=== PATIENT | female | born 1955 | race American Indian/Alaskan Native ===

== ENCOUNTER 2018-07-18 13:36 | Emergency (ER) | payer MEDICARE ==
[2018-07-18 13:51] VITALS: BP 118/79
--- NOTE | 2018-07-18 14:38 | Emergency Department Report ---
ED ENT HPI - General Chief complaint: Earache Stated complaint: EARS CLOSED UP Time Seen by Provider: 07/18/18 14:28 Source: patient Mode of arrival: Wheelchair Limitations: No Limitations - History of Present Illness Initial comments: Patient is 63-year-old female who states she was at congregation and felt as though she couldn't hear. Patient's had issues with cerumen impactions in the past. Patient states is getting worse over the last several weeks. Patient denies any fevers chills nausea vomiting at this time. - Related Data Home Medications Medication Instructions Recorded Confirmed Last Taken Aspirin [Aspirin BABY CHEW TAB] 81 mg PO QDAY 10/29/15 10/29/15 Unknown Cholecalciferol (Vitamin D3) 2,000 unit PO QDAY 10/29/15 10/29/15 Unknown [Vitamin D3] Lisinopril [Zestril] 20 mg PO QDAY 10/29/15 10/29/15 Unknown Metoprolol Xl [Metoprolol 100 mg PO QDAY 10/29/15 10/29/15 Unknown SUCCINATE ER TAB] Ranitidine HCl [Zantac 150 MG TAB] 150 mg PO BID 10/29/15 10/29/15 Unknown amLODIPine [Norvasc] 5 mg PO DAILY 10/29/15 10/29/15 Unknown Previous Rx's Medication Instructions Recorded Last Taken Type HYDROcodone/APAP 5-325 [[place] 1 each PO Q6HR PRN #10 tablet 10/29/15 Unknown Rx 5/325] Carbamide Peroxide [Earwax 10 drops AU BID #1 01/01/16 Unknown Rx Treatment] Carbamide Peroxide 6.5% [Ear Wax 2 drops OT BID #1 bottle 07/18/18 Unknown Rx Drops] Allergies Allergy/AdvReac Type Severity Reaction Status Date / Time No Known Allergies Allergy Verified 10/29/15 13:59 ED Dental HPI - General Chief complaint: Earache Stated complaint: EARS CLOSED UP Time Seen by Provider: 07/18/18 14:28 Source: patient Mode of arrival: Wheelchair Limitations: No Limitations - Related Data Home Medications Medication Instructions Recorded Confirmed Last Taken Aspirin [Aspirin BABY CHEW TAB] 81 mg PO QDAY 10/29/15 10/29/15 Unknown Cholecalciferol (Vitamin D3) 2,000 unit PO QDAY 10/29/15 10/29/15 Unknown [Vitamin D3] Lisinopril [Zestril] 20 mg PO QDAY 10/29/15 10/29/15 Unknown Metoprolol Xl [Metoprolol 100 mg PO QDAY 10/29/15 10/29/15 Unknown SUCCINATE ER TAB] Ranitidine HCl [Zantac 150 MG TAB] 150 mg PO BID 10/29/15 10/29/15 Unknown amLODIPine [Norvasc] 5 mg PO DAILY 10/29/15 10/29/15 Unknown Previous Rx's Medication Instructions Recorded Last Taken Type HYDROcodone/APAP 5-325 [[place] 1 each PO Q6HR PRN #10 tablet 10/29/15 Unknown Rx 5/325] Carbamide Peroxide [Earwax 10 drops AU BID #1 01/01/16 Unknown Rx Treatment] Carbamide Peroxide 6.5% [Ear Wax 2 drops OT BID #1 bottle 07/18/18 Unknown Rx Drops] Allergies Allergy/AdvReac Type Severity Reaction Status Date / Time No Known Allergies Allergy Verified 10/29/15 13:59 ED Review of Systems ROS: Stated complaint: EARS CLOSED UP Other details as noted in HPI Comment: All other systems reviewed and negative ED Past Medical Hx - Past Medical History Hx Hypertension: Yes Hx CVA: Yes (2008) Hx GERD: Yes Hx Arthritis: Yes - Surgical History Past Surgical History?: Yes Additional Surgical History: laser surgery on bleeding vein in stomach - Social History Smoking Status: Never Smoker Substance Use Type: None - Medications Home Medications: Home Medications Medication Instructions Recorded Confirmed Last Taken Type Aspirin [Aspirin BABY CHEW TAB] 81 mg PO QDAY 10/29/15 10/29/15 Unknown History Cholecalciferol (Vitamin D3) 2,000 unit PO QDAY 10/29/15 10/29/15 Unknown History [Vitamin D3] HYDROcodone/APAP 5-325 [[place] 1 each PO Q6HR PRN #10 tablet 10/29/15 Unknown Rx 5/325] Lisinopril [Zestril] 20 mg PO QDAY 10/29/15 10/29/15 Unknown History Metoprolol Xl [Metoprolol 100 mg PO QDAY 10/29/15 10/29/15 Unknown History SUCCINATE ER TAB] Ranitidine HCl [Zantac 150 MG TAB] 150 mg PO BID 10/29/15 10/29/15 Unknown History amLODIPine [Norvasc] 5 mg PO DAILY 10/29/15 10/29/15 Unknown History Carbamide Peroxide [Earwax 10 drops AU BID #1 01/01/16 Unknown Rx Treatment] Carbamide Peroxide 6.5% [Ear Wax 2 drops OT BID #1 bottle 07/18/18 Unknown Rx Drops] ED Physical Exam - General Limitations: No Limitations General appearance: alert, in no apparent distress - Head Head exam: Present: atraumatic, normocephalic - Eye Eye exam: Present: normal appearance - ENT ENT exam: Present: other (bilateral cerumen impaction) - Neck Neck exam: Present: normal inspection ED Course Vital Signs 07/18/18 13:49 Temperature 98.4 F Pulse Rate 57 L Respiratory 16 Rate Blood Pressure 118/79 O2 Sat by Pulse 98 Oximetry ED Medical Decision Making - Medical Decision Making Patient given a prescription for Cerumenex be discharged home. Critical care attestation.: If time is entered above; I have spent that time in minutes in the direct care of this critically ill patient, excluding procedure time. ED Disposition Clinical Impression: Excessive cerumen in both ear canals Disposition: [id number] TO HOME OR SELFCARE Is pt being admited?: No Does the pt Need Aspirin: No Condition: Stable Prescriptions: Carbamide Peroxide 6.5% [Ear Wax Drops] 2 drops OT BID #1 bottle Time of Disposition: 14:37
== END 2018-07-18 15:00 | disposition home or self-care (01) ==
LOC: ED 13:36
DX: H61.23 Impacted cerumen, bilateral (principal); I10 Essential (primary) hypertension; K21.9 Gastro-esophageal reflux disease without esophagitis; M19.90 Unspecified osteoarthritis, unspecified site; Z86.73 Personal history of transient ischemic attack (TIA), and cerebral infarction without residual deficits; Z79.82 Long term (current) use of aspirin
CPT/HCPCS: 99281

== ENCOUNTER 2020-06-27 10:48 | Outpatient (CLI) | payer MEDICARE ==
--- NOTE | 2020-06-27 14:54 | Magnetic Resonance Report ---
MRI LEFT SHOULDER WITHOUT CONTRAST INDICATION / CLINICAL INFORMATION: M25.512 PAIN IN LEFT SHOULDER/M75.102Unspecified rotator cuff tea. TECHNIQUE: Multiplanar, multisequence MR images were obtained. No contrast used. COMPARISON: Left shoulder radiographs from 05/23/2020 FINDINGS: Study limited by motion artifact. SUPRASPINATUS: Tendinosis with chronic full-thickness tear with moderate attenuation of the posterior 50% of fibers and 1.5 cm of retraction to the mid humeral head on coronal imaging. INFRASPINATUS: Tendinosis without focal tear. SUBSCAPULARIS: Tendinosis without focal tear. BICEPS TENDON, LONG HEAD: No significant abnormality. GLENOID LABRUM: Diffuse degenerative fraying. ARTICULAR CARTILAGE: Severe glenohumeral chondrosis with multiple areas of full-thickness glenoid/med ial humeral cartilage loss and a 1.5 x 1.3 cm area of delaminated cartilage at the superior, mid mary ral head. JOINT SPACE AND CAPSULE: The humeral head is moderately subluxed posteriorly. Moderate effusion with extensive synovitis ACROMION and A.C. JOINT: Moderate arthropathy. SUBACROMIAL/SUBDELTOID SPACE: No significant abnormality. BONES: No significant bone marrow edema. No fracture. No osseous lesion. SOFT TISSUES: No significant abnormality. ADDITIONAL FINDINGS: None. IMPRESSION: 1. Rotator cuff tendinosis with full-thickness tear of the posterior 50% of the fibers of the suprasp inatus and mild retraction, as above. 2. Severe glenohumeral chondrosis with multiple areas of full-thickness glenohumeral cartilage loss a nd 1.5 cm area of the delaminated cartilage superiorly. Less likely, this could represent some motion artifact. Humeral head is also subluxed posteriorly with respect to glenoid. 3. Moderate acromioclavicular arthropathy. 4. Moderate effusion with extensive synovitis. Report dictated by: Fortino Kaufman MD Report dictated on: 06/27/2020 1:32 PM I have reviewed the images, agree with this report, and edited this report as needed. Signer Name: Adam Hearn MD Signed: 06/27/2020 2:50 PM Workstation Name: [id number]
== END 2020-06-27 10:49 | disposition home or self-care (01) ==
LOC: MRI 10:48
PROVIDERS: ATTEND Orthopaedic Surgery
DX: S43.022A Posterior subluxation of left humerus, initial encounter (principal); M75.122 Complete rotator cuff tear or rupture of left shoulder, not specified as traumatic; M76.892 Other specified enthesopathies of left lower limb, excluding foot; M65.88 Other synovitis and tenosynovitis, other site; M25.412 Effusion, left shoulder; M12.812 Other specific arthropathies, not elsewhere classified, left shoulder; X58.XXXA Exposure to other specified factors, initial encounter; Y93.89 Activity, other specified; Y92.89 Other specified places as the place of occurrence of the external cause; Y99.8 Other external cause status